=== PATIENT | female | born 1970 | race Caucasian/White ===

== ENCOUNTER 2019-10-22 12:15 | Day surgery (SDC) | payer OTHER, SELFPAY ==
[2019-10-18 07:35] VITALS: BMI 37.2
[2019-10-22] VITALS (10 sets, daily range): BP systolic 110–131; BP diastolic 72–80; PULSE 68–88; RESP 11–20; TEMP 36.5–37.1; O2SAT 92–100; BMI 37.2
[2019-10-22] MEDS: LACTATED RINGERS 1,000 ML 100 ML IV (14:19)
--- NOTE | 2019-10-22 14:38 | PM.HP.1 ---
History of Present Illness History of Present Illness Date Patient Seen: 10/22/19 Time Patient Seen: 14:38 Chief complaint: [id number] Narrative: 10/22/19-the been no interval changes in health. Continues to have symptomatic umbilical hernia [id number]-old female with a previous umbilical incision for tubal ligation presents with a reducible umbilical hernia. This developed over the course of the past 3 months it is tender and worse when standing or coughing. Reduces spontaneously when lying supine. A no nausea vomiting obstipation. Patient History Medical History Arthritis (Acute) COPD (chronic obstructive pulmonary disease) (Acute) Monika's disease (Acute) Hypothyroidism (Acute) Rheumatic fever (Acute) Sleep apnea (Acute) Surgical History H/O tubal ligation (Acute) Family & Social History Tobacco & Substance use: Tobacco type cigarettes Smoking Status Former smoker alcohol intake current alcohol intake frequency a few times a month Substance Use Type does not use Meds Home Medications and Allergies Home Medications Medication Instructions Recorded Confirmed Type levothyroxine [Synthroid] 200 mcg PO DAILY 10/22/19 10/22/19 History pseudoephedrine HCl [Sudafed] 30 mg PO Q4-6H PRN 10/22/19 10/22/19 History Allergies Allergy/AdvReac Type Severity Reaction Status Date / Time azithromycin [From Zithromax] Allergy Rash Verified 10/22/19 14:16 cetirizine [From Zyrtec] Allergy Reaction Verified 10/22/19 14:16 not listed meloxicam [From Mobic] AdvReac Ringing in Verified 10/22/19 14:16 ears Review of Systems Review of Systems Narrative: A 10 point review of systems is negative except as noted in the HPI Exam Vital Signs (past 8 hours): - 10/22/19 14:09 Temperature 97.7 F Pulse Rate 82 Respiratory Rate 20 Blood Pressure 117/76 Pulse Oximetry 100 Oxygen Delivery Method Room Air Narrative Exam Narrative: General-no acute distress, well nourished HEENT-moist mucous membranes, no scleral icterus Neck-supple, no lymphadenopathy Chest- non labored respirations, clear to auscultation bilaterally Cardiac-regular rate no peripheral edema Abdomen-soft, nontender, non distended Extremities-warm, well perfused Neurological-alert and oriented, no focal deficits Assessment & Plan Assessment and plan (1) Umbilical hernia: Current visit: No Status: Acute Assessment & Plan narrative: 49-year-old female with a symptomatic umbilical reducible hernia. She is here for elective repair today. Technical details were discussed and the risks including bleeding infection recurrence. I described to her an open umbilical hernia repair with or without mesh depending on the size of the fascial defect. Her questions have been answered she is agreement with this plan.
[2019-10-22] MEDS: CEFAZOLIN 2 GM/100 ML FROZ.PIGGY IV (15:00)
[2019-10-22] MEDS: BUPIVACAINE 0.25% (PF) VIAL 30 ML INJ (15:12)
--- NOTE | 2019-10-22 15:15 | SUR.OPER ---
Supine on padded OR bed, head on pillow, arms secured on padded arm boards at <90 degrees abduction, legs uncrossed, safety belt at thigh, tape over blanket over lower legs.
[2019-10-22] MEDS: fentaNYL 100 MCG/2 ML INJ IV (16:04)
[2019-10-22] MEDS: OXYCODONE IR 5 MG TABLET PO (16:18)
--- NOTE | 2019-10-22 19:07 | PM.OP.1 ---
Operative Date/Time/Diagnoses Date of procedure: 10/22/19 Time of procedure: 19:07 Pre-op diagnosis: umbilical hernia Post-op diagnosis: same Procedure & Clinicians Procedure: Open umbilical hernia repair Same procedure as scheduled: Yes Indications: symptomatic umbilical hernia Surgeon: Girma Francois Anesthesia Type: General Operative Notes Findings: 1.5cm fascial defect Specimen(s): none sent Estimated Blood Loss (mL): 10 Procedure in detail: Patient was brought to the operating room placed supine on the table. Bilateral lower extremity compression devices were applied. General anesthesia was inducedand they were intubated with an endotracheal tube. They received 2 g of Ancef prior to skin incision. They were prepped and draped in sterile fashion. A time-out was performed ensure the correct patient procedure necessary equipment within the operating room. A curvilinear incision was made inferior to the umbilicus. The subcutaneous tissues were divided. The umbilical hernia was identified and was dissected off the umbilicus and circumferentially. The hernia sac was then closed with 3 0 Vicryl suture. The sac was reduced into the abdomen and the fascia was cleared from above. Fascial defect was approximately 1-1/2 cm. The fascial edges were then reapproximated with a [id number] 0 Prolene suture.The subcutaneous tissues were reapproximated using 3 0 Vicryl skin closed with 4 0 Monocryl upon by the application of Dermabond and Steri-Strips. Sponge instrument count at the end of the operation was correct. Patient tolerated procedure well was extubated and transferred to postoperative care unit in stable condition. Complications: none Post-operative Condition: stable Disposition: same day surgery
== END 2019-10-22 16:53 | disposition home or self-care (01) ==
PROVIDERS: PCP Family Medicine; Referring Provider Family Medicine; Visit Provider Surgery
PROC: (CPT 49585; principal; 2019-10-22 13:45)
DX: K42.9 Umbilical hernia without obstruction or gangrene (principal)
CPT/HCPCS: 49585; J0690; J1100; J2250; J2405; J2704; J3010

== ENCOUNTER 2020-02-04 13:45 | Emergency (ER) | payer OTHER, SELFPAY ==
[2020-02-04 13:45] VITALS: BP 149/91; PULSE 110; RESP 16; TEMP 36.7; O2SAT 99
--- NOTE | 2020-02-04 14:15 | ED.URI ---
HPI - URI/Sore Throat <Joann Babin PA-C - Last Filed: 02/04/20 22:08> General Chief Complaint: Upper Respiratory Symptoms Stated Complaint: swollen tonsils/sick on and off 2xmonths Time Seen by Provider: 02/04/20 14:15 Source: patient Mode of arrival: Ambulatory Limitations: no limitations History of Present Illness HPI Narrative: This is a 49-year-old obese woman with a history of sleep apnea and hypothyroid who presents to the emergency department complaining of now 2 months of burning throat pain, and swelling in her throat and tonsils that improved moderately with steroids and antibiotic treatment including amoxicillin and penicillin but began worsening about a week ago, to the point where today she felt like her throat feels like sometimes it is ?closing?. And the pain is getting worse. She does drives her throat pain as a burning sensation in that sometimes feels hot. She says that she saw ear nose and throat about a week ago, when her pain was just beginning to come back, and they told her her tonsils were ?huge?. She also feels like she might be having some postnasal drip because she feels like she has to keep clearing her throat but she is unsure she really has any drainage, she has an occasional cough but has not been coughing anything up. She also says that she has had a couple episodes in the last few weeks of dizziness that happened while she is at rest that make her feel like she is close to passing out and then they resolve. ENT put her on oral steroids again, which she stopped taking 2 days ago because she felt like she was getting worse and not better and she was concerned that they might be worsening her immune system. Patient reports that she has been under increased stress recently in her symptoms began about a week after her deployed. He left in late November her symptoms began in early December. She states that she was seen at the [facility] and had a CT scan of her neck there that was unremarkable. She says that she has had her thyroid checked relatively recently and she says that she has had a thyroid ultrasound this year she thinks in September as she has multiple nodules. She denies fever, shortness of breath, chest pain, pain, flank pain, headache, difficulty swallowing, inability to tolerate liquids or solid foods, or any other symptoms. MD Complaint: sore throat Onset (ago): week(s) (7) Duration: intermittent Severity: moderate Severity scale (1-10): 4 Relieving factors: other (ice water, Abx, steroids) Exacerbating factors: nothing Able to tolerate fluids by mouth: Yes Associated symptoms: voice changes (slightly hoarse voice) Treatments prior to arrival: none Related Data Home Medications Medication Instructions Recorded Confirmed levothyroxine [Synthroid] 200 mcg PO DAILY 10/22/19 02/04/20 Previous Rx's Medication Instructions Recorded acetaminophen [Tylenol] 650 mg PO QID PRN #60 cap 10/22/19 amoxicillin-pot clavulanate 1 tab PO BID #14 tab 02/04/20 prednisone 10 mg PO TID #18 tab 02/04/20 Allergies Allergy/AdvReac Type Severity Reaction Status Date / Time azithromycin [From Zithromax] Allergy Rash Verified 02/04/20 13:54 cetirizine [From Zyrtec] Allergy Reaction Verified 02/04/20 13:54 not listed meloxicam [From Mobic] AdvReac Ringing in Verified 02/04/20 13:54 ears Review of Systems <Joann Babin PA-C - Last Filed: 02/04/20 22:08> Review of Systems Narrative: GENERAL: Denies chills, fatigue, malaise, fever, sweats, she has been feeling slightly more anxious for the past week. HEENT: Denies sinus pain, ear pain, endorses a sore throat, difficulty swallowing, endorses a few episodes of dizziness. RESPIRATORY: Denies dyspnea, cough, wheezing, hemoptysis, sputum. CARDIOVASCULAR: Denies chest pain, palpitations, orthopnea, edema, GASTROINTESTINAL: Denies nausea, vomiting, abdominal pain, diarrhea, constipation, melena. : Denies dysuria, frequency, incontinence, hematuria, urinary retention. MUSCULOSKELETAL: denies weakness, joint pain, or bony pain SKIN: Denies rash, skin lesions, or other NEUROLOGIC: Denies weakness, headache, numbness, change in speech, confusion, seizures, incoordination. PSYCHIATRIC: No concerning psychosocial issues. 12 point review of systems is negative except for those stated above Patient History <Joann Babin PA-C - Last Filed: 02/04/20 22:08> Medical History (Updated 02/04/20 @ 16:39 by Joann Babin PA-C) Arthritis (Acute) COPD (chronic obstructive pulmonary disease) (Acute) Monika's disease (Acute) Hypothyroidism (Acute) Rheumatic fever (Acute) Sleep apnea (Acute) Surgical History H/O tubal ligation (Acute) Social History Smoking Status: Former smoker alcohol intake: current Smoking Status: Former smoker alcohol intake frequency: a few times a month Substance Use Type: does not use Exam <Joann Babin PA-C - Last Filed: 02/04/20 22:08> Narrative Exam Narrative: GENERAL: 49 year old patient appears stated age. Well-nourished, well-developed patient, in moderate distress, she appears slightly anxious and his talking fairly quickly in full sentences. HEAD: Atraumatic. Normocephalic. EYES: Pupils equal round and reactive. Extraocular motions intact. No scleral icterus. No injection or drainage, no exophthalmos noted. ENT: Nose without bleeding, purulent drainage. External ear canals are normal in appearance bilaterally, right tympanic membrane is pearly badillo with cone of light visible left tympanic membrane is without erythema, however there is a non-purulent effusion present. Throat without erythema, there is significant tonsillar hypertrophy most pronounced on the left with mild exudate on the bilateral tonsils. Airway patent. There is bilateral tender lymphadenopathy of the tonsillar, submandibular lymph nodes, there is mild pain with palpation of the thyroid, no nodules are palpable. NECK: Trachea midline. No C-spine pain. There is tenderness of the anterior superior neck without notable cervical lymphadenopathy. Auscultation over the trachea reveals audible air passage/upper airway sounds, no stridor. CARDIOVASCULAR: Regular rate and rhythm without murmurs, gallops, or rubs, heart rate is 98. There are no carotid bruits. RESPIRATORY: Clear to auscultation. Breath sounds equal bilaterally. No wheezes, rales, or rhonchi. GASTROINTESTINAL: Abdomen soft, non-tender, nondistended. EXTREMITIES: No edema or joint tenderness. BACK: Nontender without deformity or crepitance. No flank tenderness. NEURO: AOx3. SKIN: No rash or erythema of visible areas Initial Vital Signs Initial Vital Signs: Vital Signs Temperature 98.0 F 02/04/20 13:45 Pulse Rate 110 H 02/04/20 13:45 Respiratory Rate 16 02/04/20 13:45 Blood Pressure 149/91 H 02/04/20 13:45 Pulse Oximetry 99 02/04/20 13:45 <Keon Lao DO - Last Filed: 02/07/20 20:40> Initial Vital Signs Initial Vital Signs: Vital Signs Temperature 98.0 F 02/04/20 13:45 Pulse Rate 110 H 02/04/20 13:45 Respiratory Rate 16 02/04/20 13:45 Blood Pressure 149/91 H 02/04/20 13:45 Pulse Oximetry 99 02/04/20 13:45 Course <Joann Babin PA-C - Last Filed: 02/04/20 22:08> Course Course Narrative: Decadron and soft tissue head and neck ultrasound were ordered for this patient. Notes from her recent ear nose and throat visit or transferred and reviewed. Patient appears to be hyperthyroid, this could explain some of her symptoms today including her presentation of fairly rapid speech, tachycardia and anxiety. She is normally hypothyroid and does take levothyroxine. Spoke with Dr. Segura's MA (her [facility] [employer])--she is leaving a note for him regarding the patient. Orders Ordered: Discontinued Medications Dexamethasone (Decadron) 10 mg IV NOW ONE Stop: 02/04/20 14:16 Last Admin: 02/04/20 14:42 Dose: 10 mg Documented by: MEGHA Vital Signs Vital signs: Vital Signs - 8 hr 02/04/20 17:27 Pulse Rate 79 Respiratory Rate 18 Blood Pressure 121/69 Pulse Oximetry 99 <Keon Lao DO - Last Filed: 02/07/20 20:40> Orders Ordered: Discontinued Medications Dexamethasone (Decadron) 10 mg IV NOW ONE Stop: 02/04/20 14:16 Last Admin: 02/04/20 14:42 Dose: 10 mg Documented by: MEGHA Vital Signs Vital signs: Vital Signs - 8 hr 02/04/20 17:27 Pulse Rate 79 Respiratory Rate 18 Blood Pressure 121/69 Pulse Oximetry 99 MDM - URI/Sore Throat <Joann Babin PA-C - Last Filed: 02/04/20 22:08> Differential Diagnosis Differential diagnosis: Likely upper respiratory infection, pharyngitis and other (tonsillar hypertrophy) Medical Records Attestation: I reviewed the patient's medical records. Medical records narrative: Reviewed the records sent over from [place] [facility] regarding the patient's visit on January 29, 2020. At that time she did not have any active throat pain and her exam as documented was unremarkable except for 3+ irregular enlarged tonsils with significant inferior extension bilaterally. Of note after the patient's appointment that day she is noted to have called back with a complaint of her throat starting to hurt more in her postnasal drip getting worse and asked for antibiotics and steroids. Lab Data Result diagrams: 02/04/20 14:35 02/04/20 14:35 Labs: Lab Results 02/04/20 02/04/20 02/04/20 Range/Units 14:35 14:35 14:35 WBC 7.5 (4.5-11.0) X10^3/uL RBC 4.97 (4.0-5.2) X10^6/uL Hgb 14.0 (12.0-16.0) g/dL Hct 40.7 (36-46) % MCV 82.0 (80-100) fL MCH 28.2 (26-34) PG MCHC 34.4 (30-36) % RDW 14.6 (11.6-14.8) % Plt Count 361 (150-400) X10^3/uL Neut % (Auto) 69.3 (50-75) % Lymph % (Auto) 23.0 L (25-40) % Crowley % (Auto) 5.8 (3-14) % Eos % (Auto) 1.3 L (2-4) % Baso % (Auto) 0.6 (0-2) % Neut # (Auto) 5200 (1763-2651) /uL Lymph # (Auto) 1700 (8809-2869) /uL Crowley # (Auto) 400 (0-900) /uL Eos # (Auto) 100 (0-450) /uL Baso # (Auto) 0 (0-100) /uL Sodium 139 (137-145) mmol/L Potassium 4.1 (3.4-5.1) mmol/L Chloride 102 (98-107) mmol/L Carbon Dioxide 28 (22-32) mmol/L BUN 12 (7-17) mg/dL Creatinine 0.58 (0.52-1.04) mg/dL Estimated GFR > 60.0 (>60) mL/min BUN/Creatinine Ratio 20.7 (6-22) Glucose 102 H (70-100) mg/dL Calcium 9.8 (8.4-10.2) mg/dL Total Bilirubin 0.5 (0.2-1.3) mg/dL AST 25 (14-36) IU/L ALT 25 (<35) IU/L Alkaline Phosphatase 110 (38-126) U/L Total Protein 8.5 H (6.3-8.2) g/dL Albumin 4.3 (3.5-5.0) g/dL Globulin 4.2 H (1.7-4.1) g/dL Albumin/Globulin Ratio 1.0 (1.0-2.8) TSH < 0.02 L (0.47-4.68) uIU/mL Free T4 (0.78-2.19) ng/dL Free T3 (2.77-5.27) pg/mL Monoscreen (Negative) 02/04/20 02/04/20 Range/Units 14:35 14:35 WBC (4.5-11.0) X10^3/uL RBC (4.0-5.2) X10^6/uL Hgb (12.0-16.0) g/dL Hct (36-46) % MCV (80-100) fL MCH (26-34) PG MCHC (30-36) % RDW (11.6-14.8) % Plt Count (150-400) X10^3/uL Neut % (Auto) (50-75) % Lymph % (Auto) (25-40) % Crowley % (Auto) (3-14) % Eos % (Auto) (2-4) % Baso % (Auto) (0-2) % Neut # (Auto) (1233-1449) /uL Lymph # (Auto) (3538-5130) /uL Crowley # (Auto) (0-900) /uL Eos # (Auto) (0-450) /uL Baso # (Auto) (0-100) /uL Sodium (137-145) mmol/L Potassium (3.4-5.1) mmol/L Chloride (98-107) mmol/L Carbon Dioxide (22-32) mmol/L BUN (7-17) mg/dL Creatinine (0.52-1.04) mg/dL Estimated GFR (>60) mL/min BUN/Creatinine Ratio (6-22) Glucose (70-100) mg/dL Calcium (8.4-10.2) mg/dL Total Bilirubin (0.2-1.3) mg/dL AST (14-36) IU/L ALT (<35) IU/L Alkaline Phosphatase (38-126) U/L Total Protein (6.3-8.2) g/dL Albumin (3.5-5.0) g/dL Globulin (1.7-4.1) g/dL Albumin/Globulin Ratio (1.0-2.8) TSH (0.47-4.68) uIU/mL Free T4 2.10 (0.78-2.19) ng/dL Free T3 5.06 (2.77-5.27) pg/mL Monoscreen Negative (Negative) Point of Care Testing Rapid Strep A Negative Imaging Data Us neck: Attestation: I personally reviewed and interpreted this imaging study as follows: Radiologist's Impression: [address] [address] Ultrasound Report Signed Patient: Lexii Bowling [facility]#: [id number] : 1970Acct:[id number] Age/Sex: 49 / FDate of Service: 02/04/20 Loc: ED Accession Number: [id number] Procedure: US soft tissue head and neck Ordering Provider: Joann Babin P.A-C PROCEDURE: US SOFT TISSUE HEAD AND NECK INDICATIONS: THROAT SWELLING; ? LYMPHADENOPATHY TECHNIQUE: Real-time scanning was performed of the neck region of interest, with image documentation. COMPARISON: None. FINDINGS: Limited sonographic images in the submandibular regions bilaterally demonstrate bilateral lymph nodes measuring 11 x 8 x 25 mm on the right and 13 x 12 x 8 mm on the left. Both lymph nodes demonstrate fatty hilums. IMPRESSION: Bilateral submandibular lymph nodes measuring less than 10 mm in short axis. Dictated by: Felicity Bishop M.D. on 02/04/2020 at 15:47 Approved by: Felicity Bishop M.D. on 02/04/2020 at 15:49 MDM Narrative Medical decision making narrative: This is a slightly distressed and anxious appearing 49-year-old woman with a history of hypothyroid, obesity and sleep apnea and 2 months of intermittent throat pain and swelling who presents to the emergency department complaining of worsening throat pain and swelling over the past week worsening further today. Differential diagnoses that were considered included: Hyperthyroid, Viral pharyngitis, bacterial pharyngitis, tonsillar hypertrophy, peritonsillar abscess, retropharyngeal abscess, deep neck space infection, strep throat, mononucleosis, strep throat, anxiety With exception of TSH, her labs were unremarkable today. This combine with the overall duration of her symptoms and the fact that she has not been on antibiotics for weeks now, I think it is unlikely she is suffering from a peritonsillar abscess or retropharyngeal abscess. I believe some of her recent symptoms may be explained by her hyperthyroid state, however the etiology of her continued tonsillar hypertrophy and throat discomfort is unclear, is possible that her hyperthyroid state has diminished the relative effectiveness of the steroid medication she was taking for her swelling. I do think anxiety plays a not insignificant part of her presentation today. Aspects of her description of throat discomfort were consistent with anxiety, and I believe she is experiencing a unfortunate cycle of when she feels like her throat is swollen it makes her anxious which makes her throat feel more irritated and a little bit tight which makes her more anxious. I discussed all of the results from today's workup and discussed her hyperthyroid state extensively, greater than 11 minutes was spent counseling the patient. She has no indication of sx of a severe hyperthyroid or thyroid storm, and for this reason I have not made any changes to her thyroid medication today, instead she was advised to call her [facility] [employer] in the morning who I also contacted this afternoon leaving a message for him at his office. She was advised to have close follow-up with her director [employer] as well as ear nose and throat follow up. In addition to receiving dexamethasone in the emergency department (which gave her notable relief of her throat symptoms), she was discharged with additional prednisone as well as a 7 day course of Augmentin. She was provided with emergency return precautions and all questions were answered. <Keon Lao, DO - Last Filed: 06/05/20 20:40> Lab Data Labs: Lab Results 02/04/20 02/04/20 02/04/20 Range/Units 14:35 14:35 14:35 WBC 7.5 (4.5-11.0) X10^3/uL RBC 4.97 (4.0-5.2) X10^6/uL Hgb 14.0 (12.0-16.0) g/dL Hct 40.7 (36-46) % MCV 82.0 (80-100) fL MCH 28.2 (26-34) PG MCHC 34.4 (30-36) % RDW 14.6 (11.6-14.8) % Plt Count 361 (150-400) X10^3/uL Neut % (Auto) 69.3 (50-75) % Lymph % (Auto) 23.0 L (25-40) % Crowley % (Auto) 5.8 (3-14) % Eos % (Auto) 1.3 L (2-4) % Baso % (Auto) 0.6 (0-2) % Neut # (Auto) 5200 (9526-7576) /uL Lymph # (Auto) 1700 (1669-6576) /uL Crowley # (Auto) 400 (0-900) /uL Eos # (Auto) 100 (0-450) /uL Baso # (Auto) 0 (0-100) /uL Sodium 139 (137-145) mmol/L Potassium 4.1 (3.4-5.1) mmol/L Chloride 102 (98-107) mmol/L Carbon Dioxide 28 (22-32) mmol/L BUN 12 (7-17) mg/dL Creatinine 0.58 (0.52-1.04) mg/dL Estimated GFR > 60.0 (>60) mL/min BUN/Creatinine Ratio 20.7 (6-22) Glucose 102 H (70-100) mg/dL Calcium 9.8 (8.4-10.2) mg/dL Total Bilirubin 0.5 (0.2-1.3) mg/dL AST 25 (14-36) IU/L ALT 25 (<35) IU/L Alkaline Phosphatase 110 (38-126) U/L Total Protein 8.5 H (6.3-8.2) g/dL Albumin 4.3 (3.5-5.0) g/dL Globulin 4.2 H (1.7-4.1) g/dL Albumin/Globulin Ratio 1.0 (1.0-2.8) TSH < 0.02 L (0.47-4.68) uIU/mL Free T4 (0.78-2.19) ng/dL Free T3 (2.77-5.27) pg/mL Monoscreen (Negative) 02/04/20 02/04/20 Range/Units 14:35 14:35 WBC (4.5-11.0) X10^3/uL RBC (4.0-5.2) X10^6/uL Hgb (12.0-16.0) g/dL Hct (36-46) % MCV (80-100) fL MCH (26-34) PG MCHC (30-36) % RDW (11.6-14.8) % Plt Count (150-400) X10^3/uL Neut % (Auto) (50-75) % Lymph % (Auto) (25-40) % Crowley % (Auto) (3-14) % Eos % (Auto) (2-4) % Baso % (Auto) (0-2) % Neut # (Auto) (5064-6799) /uL Lymph # (Auto) (7082-4158) /uL Crowley # (Auto) (0-900) /uL Eos # (Auto) (0-450) /uL Baso # (Auto) (0-100) /uL Sodium (137-145) mmol/L Potassium (3.4-5.1) mmol/L Chloride (98-107) mmol/L Carbon Dioxide (22-32) mmol/L BUN (7-17) mg/dL Creatinine (0.52-1.04) mg/dL Estimated GFR (>60) mL/min BUN/Creatinine Ratio (6-22) Glucose (70-100) mg/dL Calcium (8.4-10.2) mg/dL Total Bilirubin (0.2-1.3) mg/dL AST (14-36) IU/L ALT (<35) IU/L Alkaline Phosphatase (38-126) U/L Total Protein (6.3-8.2) g/dL Albumin (3.5-5.0) g/dL Globulin (1.7-4.1) g/dL Albumin/Globulin Ratio (1.0-2.8) TSH (0.47-4.68) uIU/mL Free T4 2.10 (0.78-2.19) ng/dL Free T3 5.06 (2.77-5.27) pg/mL Monoscreen Negative (Negative) Point of Care Testing Rapid Strep A Negative Discharge Plan Departure Patient Disposition: Home Clinical Impression: Hypertrophy of tonsils, Hyperthyroidism Pharyngitis Qualifiers: Pharyngitis/tonsillitis etiology: unspecified etiology Qualified Code(s): J02.9 - Acute pharyngitis, unspecified Discharge Date/Time: 02/04/20 17:28 Instructions: DI for Pharyngitis/Tonsillopharyngitis -- Adult, DI for Hyperthyroidism Activity Restrictions/Additional Instructions: Thank you for letting us be part of your care in the emergency department today. While I do not have a specific answer for why your continuing to have tonsillar swelling and discomfort, we have cultured your throat and if this grows anything positive for bacteria we will let you now as you may need to take another round of antibiotics. We also found that your thyroid is hyperthyroid today, this could be occurring for a number of reasons, I know that you are normally hypothyroid and you take medication for this, and for this reason it is very important that you follow-up with your [facility] [employer] [facility] Dr. Doll. I did call his office today and passed on a message that you were seen in the emergency department and that you are hyperthyroid today but was not able to speak with him specifically. At this point in time I would recommend that you talk to him regarding your thyroid medication in his suggestion regarding any changes in dose. Your T3 and T4 which are also thyroid hormones or in the normal range today. The ultrasound of your throat did not show anything specifically concerning, you do have some enlarged lymph nodes which we expected to find based on exam. I also recommend you follow-up with ear nose and throat again if you continue to have swelling of your tonsils and throat discomfort even after your hyperthyroidism is addressed. Strongly recommend you follow-up with the ear nose and throat doctor as well There is no evidence of an emergent or life threatening illness at this time, but follow up with your doctor in 1-2 days is recommended nonetheless to continue to rule out serious underlying causes of your symptoms. Please call the office for an appointment. Please return to the Emergency Department for any worsening or persistent symptoms. Please take medications as directed. For the time being because of your swollen tonsils and the discomfort he has been having I do recommend you continue to take the steroid medication, is unclear if this is related to your hyperthyroid, however when people are hyperthyroid they do processes steroid medications more quickly. I did prescribe antibiotics and steroids and sent this to the [facility] in [place], although at this time we do not have positive culture (we are still awaiting the results) and the swabs that we did today were negative (for strep and mononucleosis). Prescriptions: New prednisone 10 mg tablet 10 mg PO TID Qty: 18 RF: 0 amoxicillin-pot clavulanate 875-125 mg tablet 1 tab PO BID Qty: 14 RF: 0 No Action levothyroxine [Synthroid] 200 mcg Tablet 200 mcg PO DAILY RF: 0 acetaminophen [Tylenol] 325 mg capsule 650 mg PO QID PRN (Reason: pain) Qty: 60 RF: 0 Referrals: Hunter Doll MD [Non-Staff] - Daniel Kyle MD [Physician] - Anabella Gardner [Primary Care Provider] - <Keon Lao DO - Last Filed: 02/07/20 20:40> [facility] Attestation: I was immediately available in the department for consultation. This documentation has been reviewed and I agree with assessment and plan. Supervised by Keon Lao DO
[2020-02-04] MEDS: DEXAMETHASONE 10 MG/ML VIAL IV (14:42)
[2020-02-04 14:43] LABS: Add Manual Diff / Slide Review NO; Basophils Absolute Auto 0 /uL (0-100); Basophils Percent Auto 0.6 % (0-2); Eosinophils Absolute Auto 100 /uL (0-450); Eosinophils Percent Auto 1.3 % (2-4); Hematocrit 40.7 % (36-46); Lymphocytes Absolute Auto 1700 /uL (1100-4500); Mean Corpuscular HGB Conc 34.4 % (30-36); Mean Corpuscular Hemoglobin 28.2 PG (26-34); Monocytes Absolute Auto 400 /uL (0-900); Monocytes Percent Auto 5.8 % (3-14); Neutrophils Absolute Auto 5200 /uL (1500-7000); Neutrophils Percent Auto 69.3 % (50-75); Platelet Count 361 X10^3/uL (150-400); Red Blood Cell Count 4.97 X10^6/uL (4.0-5.2); Red Cell Distribution Width 14.6 % (11.6-14.8); White Blood Cell Count 7.5 X10^3/uL (4.5-11.0)
[2020-02-04 14:55] LABS: Alanine Aminotransferase 25 IU/L (<35); Albumin 4.3 g/dL (3.5-5.0); Alkaline Phosphatase 110 U/L (38-126); Aspartate Aminotransferase 25 IU/L (14-36); BUN Creatinine Ratio 20.7 (6-22); Bilirubin Total 0.5 mg/dL (0.2-1.3); Blood Urea Nitrogen 12 mg/dL (7-17); Calcium 9.8 mg/dL (8.4-10.2); Carbon Dioxide 28 mmol/L (22-32); Chloride 102 mmol/L (98-107); Estimated Glomerular Filt Rate > 60.0 mL/min (>60); Globulin 4.2 g/dL (1.7-4.1); Glucose 102 mg/dL (70-100); HEMOLYSIS 23 (0-50); Potassium 4.1 mmol/L (3.4-5.1); Sodium 139 mmol/L (137-145); Total Protein 8.5 g/dL (6.3-8.2)
[2020-02-04 15:24] LABS: Monotest Negative (Negative)
[2020-02-04 15:25] LABS: Thyroid Stimulating Hormone < 0.02 uIU/mL (0.47-4.68)
[2020-02-04 16:15] LABS: Free T3, Triiodothyronine Free 5.06 pg/mL (2.77-5.27)
[2020-02-04 17:27] VITALS: BP 121/69; PULSE 79; RESP 18; O2SAT 99
== END 2020-02-04 17:28 | disposition home or self-care (01) ==
PROVIDERS: Emergency Provider Student in an Organized Health Care Education/Training Program; PCP Family Medicine
DX: J35.1 Hypertrophy of tonsils (principal); J02.9 Acute pharyngitis, unspecified; E05.90 Thyrotoxicosis, unspecified without thyrotoxic crisis or storm; E66.9 Obesity, unspecified; G47.30 Sleep apnea, unspecified
CPT/HCPCS: 36415; 76536; 80053; 84439; 84443; 84481; 85025; 86318; 87070; 87147; 87880; 93005; 93010; 96374; 99284; J1100

== ENCOUNTER → 2020-04-07 16:52 | Outpatient (CLI) | payer OTHER, SELFPAY ==
--- NOTE | 2020-04-07 | DI.MRI.S_ITS ---
PROCEDURE: MR FOOT LT WO/W CON INDICATIONS: BILT FEET PAIN TECHNIQUE: Noncontrast sagittal T1 spin echo and T2 fast spin echo with fat saturation, long-axis T1 spin echo and T2 fast spin echo with fat saturation; short-axis T1 spin echo, proton density fast spin echo, and T2 fast spin echo with fat saturation through the forefoot. Post-contrast short axis, long axis, and sagittal T1 spin echo with fat saturation through the forefoot. COMPARISON: [facility], CR, XR FOOT 3+ VIEWS BILATERAL, 07/16/2019, 17:23. [facility], MR, MR FOOT RT WO/W CON, 04/07/2020, 17:00. FINDINGS: Image quality: Excellent. There is marrow signal change, T2 hyperintensity involving the cuboid , and the lateral cuneiform, however no definite enhancement is seen. Mild periarticular T2 hyperintensity at the 5th MTP joint however no definite enhancement, raising possibility of subtle synovitis although technically nonspecific by strict criteria. Probable artifactual susceptibility bright dark artifact involving the soft tissues adjacent to the great toe nail bed along the lateral aspect. Recommend clinical correlation to clinical exam findings and visual inspection.Elsewhere, no definite focal marrow signal changes to suggest erosions. No evidence of tenosynovitis. Soft tissue enhancement along the plantar aspect of the 2nd toe, of unclear etiology No osteitis identified. No pathologic joint effusion. Small synovial or ganglion cysts seen adjacent to the medial aspect of the navicular and medial cuneiform, subcentimeter in size IMPRESSION: Overall, no specific marrow signal changes to suggest erosion by strict criteria Mild periarticular T2 hyperintensity at the 5th MTP joint raising the possibility of subtle synovitis however no associated Chris med therefore nonspecific. Presumed degenerative cystic change involving the cuboid. No associated Chris mint identified Mild soft tissue enhancement along the plantar aspect of the 2nd toe, suggesting nonspecific cellulitis. Please correlate clinically Possible subcentimeter ganglion versus synovial cyst along the medial aspect of the navicular and medial cuneiform. Dictated by: Olvin Coles M.D. on 04/08/2020 at 9:11 Approved by: Olvin Coles M.D. on 04/08/2020 at 9:22
--- NOTE | 2020-04-07 | DI.MRI.S_ITS ---
PROCEDURE: MR FOOT RT WO/W CON INDICATIONS: BILAT FEET PAIN TECHNIQUE: Noncontrast sagittal T1 spin echo and T2 fast spin echo with fat saturation, long-axis T1 spin echo and T2 fast spin echo with fat saturation; short-axis T1 spin echo, proton density fast spin echo, and T2 fast spin echo with fat saturation through the forefoot. Post-contrast short axis, long axis, and sagittal T1 spin echo with fat saturation through the forefoot. COMPARISON: Right foot radiographs dated 07/16/19. FINDINGS: Image quality: Excellent. No fracture. 1 mm focal marrow signal change with T2 hyperintense and T1 hypointense appearance seen in the 5th metatarsal head, demonstrating possible enhancement and suspicious for erosion . There is surrounding periarticular T2 hyperintensity however no definite enhancement on post gadolinium pulse sequences although the finding raises the possibility of low-grade synovitis. Elsewhere, there is subcutaneous enhancement present within the plantar soft tissues of the 2nd toe for example image 19/12, image 26/13 although the exact etiology is unclear. Mild 1st MTP osteoarthritis. No definite tenosynovitis identified. No pathologic joint effusion No osteitis seen. IMPRESSION: Subtle marrow signal change involving the 5th metatarsal head worrisome for early erosion as discussed above. Questionable synovitis based on the T2 weighted pulse sequences however no definite associated enhancement. Mild 1st MTP osteoarthritis Dictated by: Olvin Coles M.D. on 04/08/2020 at 9:02 Approved by: Olvin Coles M.D. on 04/08/2020 at 9:10
== END ==
PROVIDERS: PCP Family Medicine; Referring Provider Family Medicine; Visit Provider Internal Medicine Rheumatology
DX: M79.671 Pain in right foot (principal); M79.672 Pain in left foot; M19.071 Primary osteoarthritis, right ankle and foot
CPT/HCPCS: 73720; A9579